=== PATIENT | female | born 1965 | race Caucasian/White ===

== ENCOUNTER 2016-10-18 10:50 | Emergency (ER) | payer OTHER ==
[~2016-10-18] VITALS: Ht 160 cm; Wt 102.2 kg
[~2016-10-18 10:50] MED LIST: ALBUTEROL0.083 % IN; AMOXICILLIN/CL875 MG OR; AMOXICILLIN/CL875 MG PO; AMOXICILLIN500 MG PO; ANAPROX275 MG PO; AUGMENTIN875 MG PO; AUGMENTIN875TAB OR; AUGMENTIN875TAB PO; AZITHROMYCIN250 MG PO; CARAFATE1 GM/10 M1 PO; CARAFATE1 GM/10 ML PO; CIPRODEX1 ML AD; CIPROFLOXACN500 MG PO; CLEOCIN300 MG OR; CORTISPORIN OTI10 ML AD; DEPO-MEDROL80 MG/ML IM; DIOVAN80 MG OR; DONNATA2 OR; DUONEB IN; FLEXERIL OR; FLEXERIL10 MG PO; HYDROCHLOROT12.5 MG OR; HYDROCHLOROT12.5 MG PO; HYDROCHLOROT25 MG PO; HYDROCORTISO2.51 EX; HYDROMET1 ML OR; HYDROXYZ HCL25 MG PO; IMITREX IJ; IMITREX50 M1 PO; IMITREX50 MG PO; KEFLEX500 MG PO; KETOROLAC60 MG/2 ML IJ; KETOROLAC60 MG/2 ML IM; LEVOTHYROXIN50 MCG PO; LISINOPRIL10 MG PO; LORTAB 5 OR; LOSARTAN POT25 MG PO; MAALOX/BEN PO; MEDDOSEPAK OR; MEDDOSEPAK PO; MUCUS RELIEF400 MG OR; MULTI VITAMN OR; NAPROSYN500 MG PO; NAPROXEN SOD500 MG PO; OMEPRAZOLE20 MG PO; OMEPRAZOLE40 MG PO; OMNICEF300 MG OR; PHENERGAN25 MG/ML IM; PHENERGAN25 MG/ML PO; PRAVASTATIN10 MG PO; PRILOSEC40 MG PO; PROAIR HFA IN; PYRIDIUM200 MG PO; RED YEAS1 OR; ROBITUSSIN AC10 ML PO; ROCEPHIN 1 GM1 GM IM; ROCEPHIN 2250 MG/VIA IM; SOLU-MEDROL125 MG IM; TORADOL IM; TRIAMCINOLON0.11 EX; VERAPAMIL HCL240 MG PO; VERAPAMIL120 M1 OR; VERAPAMIL240 M1 PO; XYZAL5 MG PO; ZANAFLEX4 MG PO; ZITHROMAX250 MG PO; ZOFRAN ODT4 MG PO; ZOFRAN4 MG/TAB PO; ZOLOFT100 MG PO; ZOLOFT25 MG OR; ZOLOFT50 MG OR; ZOLOFT50 MG PO; ZPAK PO; [UNRECOGNIZED DRUG - OTHER]; [UNRECOGNIZED DRUG - OTHER] IJ; [UNRECOGNIZED DRUG - OTHER] PO
[2016-10-18] MEDS ORDERED: AMLODIPINE2.5 MG PO (12:27)
[2016-10-18] MEDS ORDERED: ZOFRAN ODT4 MG PO (12:35)
[2016-10-18] MEDS ORDERED: FIORICET PO (12:35)
[2016-10-18 13:22] VITALS: BP 137/86
== END 2016-10-18 13:22 | disposition home or self-care (01) | DRG 103 ==
LOC: ED 10:50
DX: G43.909 Migraine, unspecified, not intractable, without status migrainosus (principal); R11.0 Nausea

== ENCOUNTER 2017-01-13 15:38 | Emergency (ER) | payer OTHER ==
[~2017-01-13] VITALS: Ht 160 cm; Wt 100.0 kg
[~2017-01-13 15:38] MED LIST changes: +AMLODIPINE2.5 MG PO; +FIORICET PO
[2017-01-13] MEDS ORDERED: LEVOTHYROXIN75 MCG PO (15:50)
[2017-01-13] MEDS ORDERED: LOSARTAN POTASS50 MG PO (15:51)
[2017-01-13] MEDS ORDERED: INDERAL 40MG TA40 MG PO (15:54)
[2017-01-13] MEDS ORDERED: PROPRANOLOL HC120 MG PO (15:56)
[2017-01-13 16:22] LABS: HEMATOCRIT 38.2 % (37.0-47.0); HEMOGLOBIN 13.8 g/dl (12.0-16.0); IMMATURE GRANULOCYTES 0.3 % (0.0-1.0); MEAN CELL VOLUME 89.3 fL CALC (80.0-100.0); MEAN CORPUSCULAR HGB 32.2 pG CALC (26.0-32.0); MEAN CORPUSCULAR HGB CONC 36.1 g/L CALC (32.0-36.0); NEUT# 4.1 thou/uL (2.00-7.15); RED BLOOD COUNT 4.28 mill/uL (4.20-5.60); RED CELL DISTRI WIDTH 12.8 % (11.5-15.5)
[2017-01-13 16:30] LABS: ALBUMIN 4.6 g/dL (3.2-5.0); ALKALINE PHOSPHATASE 49 u/l (38-126); ANION GAP 17 (6-22 (CALC)); BILIRUBIN, TOTAL 0.8 mg/dL (0.0-1.4); BUN 11 mg/dL (7-17); BUN/CREATININE RATIO 16 (12-20 (CALC)); CALCIUM 9.1 mg/dL (8.4-10.2); CARBON DIOXIDE 24 mmol/l (22-30); CHLORIDE 105 mmol/l (95-108); CREATININE 0.7 mg/dL (0.5-1.0); GFR > 60 ML/MIN (>=60 (CALC)); GFR FOR AFR.AMER. > 60 ML/MIN (>=60 (CALC)); GLUCOSE 95 mg/dL (65-105); POTASSIUM 3.8 mmol/l (3.5-5.1); SGOT/AST 28 u/l (14-36); SGPT/ALT 42 u/l (9-52); SODIUM 142 mmol/l (137-146); TOTAL PROTEIN 7.3 g/dL (6.3-8.2)
[2017-01-13 16:42] LABS: MYOGLOBIN 22 ng/mL (0 - 62)
[2017-01-13] MEDS ORDERED: AMLODIPINE2.5 MG PO (17:24)
[2017-01-13 17:52] VITALS: BP 111/59
== END 2017-01-13 18:05 | disposition home or self-care (01) | DRG 305 ==
LOC: ED 15:38
PROVIDERS: Emergency Medicine
DX: I10 Essential (primary) hypertension (principal); E03.9 Hypothyroidism, unspecified; G43.909 Migraine, unspecified, not intractable, without status migrainosus; J45.909 Unspecified asthma, uncomplicated; F41.9 Anxiety disorder, unspecified

== ENCOUNTER 2017-01-22 21:56 | Emergency (ER) | payer OTHER ==
[~2017-01-22] VITALS: Ht 160 cm; Wt 102.0 kg
[~2017-01-22 21:56] MED LIST changes: +INDERAL 40MG TA40 MG PO; +LEVOTHYROXIN75 MCG PO; +LOSARTAN POTASS50 MG PO; +PROPRANOLOL HC120 MG PO
[2017-01-22 23:56] VITALS: BP 130/65
== END 2017-01-23 00:02 | disposition home or self-care (01) | DRG 103 ==
LOC: ED 21:56
DX: G43.909 Migraine, unspecified, not intractable, without status migrainosus (principal); I10 Essential (primary) hypertension; J45.909 Unspecified asthma, uncomplicated; E03.9 Hypothyroidism, unspecified; F41.0 Panic disorder [episodic paroxysmal anxiety]

== ENCOUNTER 2017-02-14 20:49 | Emergency (ER) | payer OTHER ==
[~2017-02-14] VITALS: Ht 160 cm; Wt 103.8 kg
[2017-02-14] MEDS ORDERED: HYDROCHLOROT25 MG PO (21:00)
[2017-02-14 23:07] VITALS: BP 123/57
== END 2017-02-14 23:07 | disposition home or self-care (01) | DRG 103 ==
LOC: ED 20:49
DX: G43.909 Migraine, unspecified, not intractable, without status migrainosus (principal); R11.2 Nausea with vomiting, unspecified

== ENCOUNTER 2017-02-27 16:49 | Emergency (ER) | payer OTHER ==
[~2017-02-27] VITALS: Ht 160 cm; Wt 98.0 kg
[2017-02-27 19:45] VITALS: BP 132/67
== END 2017-02-27 19:45 | disposition home or self-care (01) | DRG 103 ==
LOC: ED 16:49
DX: G43.909 Migraine, unspecified, not intractable, without status migrainosus (principal); I10 Essential (primary) hypertension; R11.0 Nausea

== ENCOUNTER 2017-03-03 13:24 | Emergency (ER) | payer OTHER ==
[~2017-03-03] VITALS: Ht 160 cm; Wt 102.0 kg
[2017-03-03 14:00] LABS: HEMATOCRIT 40.2 % (37.0-47.0); HEMOGLOBIN 14.6 g/dl (12.0-16.0); IMMATURE GRANULOCYTES 0.5 % (0.0-1.0); MEAN CELL VOLUME 89.3 fL CALC (80.0-100.0); MEAN CORPUSCULAR HGB 32.4 pG CALC (26.0-32.0); MEAN CORPUSCULAR HGB CONC 36.3 g/L CALC (32.0-36.0); NEUT# 5.14 thou/uL (2.00-7.15); RED BLOOD COUNT 4.5 mill/uL (4.20-5.60); RED CELL DISTRI WIDTH 12.4 % (11.5-15.5)
[2017-03-03 14:22] LABS: ALBUMIN 4.5 g/dL (3.2-5.0); ALKALINE PHOSPHATASE 53 u/l (38-126); ANION GAP 17 (6-22 (CALC)); BILIRUBIN, TOTAL 0.8 mg/dL (0.0-1.4); BUN 14 mg/dL (7-17); BUN/CREATININE RATIO 21 (12-20 (CALC)); CALCIUM 9.4 mg/dL (8.4-10.2); CARBON DIOXIDE 28 mmol/l (22-30); CHLORIDE 99 mmol/l (95-108); CREATININE 0.7 mg/dL (0.5-1.0); ETHYL ALCOHOL 0 mg/dl (0-30); GFR > 60 ML/MIN (>=60 (CALC)); GFR FOR AFR.AMER. > 60 ML/MIN (>=60 (CALC)); GLUCOSE 116 mg/dL (65-105); POTASSIUM 3.2 mmol/l (3.5-5.1); SGOT/AST 41 u/l (14-36); SGPT/ALT 46 u/l (9-52); SODIUM 140 mmol/l (137-146); TOTAL PROTEIN 7.3 g/dL (6.3-8.2)
[2017-03-03 14:33] LABS: MYOGLOBIN 41 ng/mL (0 - 62)
[2017-03-03 15:20] LABS: URINE BILIRUBIN - DIPSTICK NEGATIVE (NEGATIVE); URINE BLOOD DIPSTICK NEGATIVE (NEGATIVE); URINE CLARITY SLIGHT CLOUDY; URINE COLOR YELLOW; URINE GLUCOSE - DIPSTICK NEGATIVE (NEGATIVE); URINE KETONE NEGATIVE (NEGATIVE); URINE LEUK ESTERASE TRACE (NEGATIVE); URINE NITRITE - DIPSTICK NEGATIVE (Negative); URINE PROTEIN - DIPSTICK NEGATIVE (NEG-TRACE); URINE SPECIFIC GRAVITY <=1.005; URINE UROBILINOGEN - DIPSTICK 0.2 E.U./dL (0.2)
[2017-03-03 15:23] LABS: BARBITURATES NEGATIVE (NEGATIVE); COCAINE NEGATIVE (NEGATIVE); METHADONE NEGATIVE (NEGATIVE); OXCYCODONE NEGATIVE (NEGATIVE); TETRAHYDROCANNABIONOL NEGATIVE (NEGATIVE); TRICYLIC ANTIDEPRESSANTS NEGATIVE (NEGATIVE)
[2017-03-03] MEDS ORDERED: BACTRIM DS1 TAB PO (16:03)
[2017-03-03 16:04] VITALS: BP 135/69
== END 2017-03-03 16:19 | disposition home or self-care (01) | DRG 312 ==
LOC: ED 13:24
PROVIDERS: Emergency Medicine
DX: R55 Syncope and collapse (principal); I10 Essential (primary) hypertension; N39.0 Urinary tract infection, site not specified; E87.6 Hypokalemia; J45.909 Unspecified asthma, uncomplicated; E03.9 Hypothyroidism, unspecified; F41.9 Anxiety disorder, unspecified

== ENCOUNTER 2017-03-11 16:51 | Emergency (ER) | payer OTHER ==
[~2017-03-11] VITALS: Ht 160 cm; Wt 85.0 kg
[~2017-03-11 16:51] MED LIST changes: +BACTRIM DS1 TAB PO
[2017-03-11] MEDS ORDERED: VALIUM5 MG PO (17:36)
[2017-03-11] MEDS ORDERED: ZOFRAN ODT4 MG PO (17:36)
[2017-03-11] MEDS ORDERED: PERCOCET 5/325M1 TAB PO (18:14)
[2017-03-11 18:29] VITALS: BP 145/76
== END 2017-03-11 18:39 | disposition home or self-care (01) | DRG 103 ==
LOC: ED 16:51
DX: G43.909 Migraine, unspecified, not intractable, without status migrainosus (principal); R11.2 Nausea with vomiting, unspecified

== ENCOUNTER 2017-07-02 18:20 | Emergency (ER) | payer OTHER ==
[~2017-07-02] VITALS: Ht 160 cm; Wt 108.0 kg
[~2017-07-02 18:20] MED LIST changes: +PERCOCET 5/325M1 TAB PO; +VALIUM5 MG PO
[2017-07-02 18:48] LABS: HEMATOCRIT 41.1 % (37.0-47.0); HEMOGLOBIN 14.8 g/dl (12.0-16.0); IMMATURE GRANULOCYTES 0.2 % (0.0-1.0); MEAN CELL VOLUME 90.3 fL CALC (80.0-100.0); MEAN CORPUSCULAR HGB 32.5 pG CALC (26.0-32.0); NEUT# 3.64 thou/uL (2.00-7.15); RED BLOOD COUNT 4.55 mill/uL (4.20-5.60); RED CELL DISTRI WIDTH 12.1 % (11.5-15.5)
[2017-07-02 19:05] LABS: ALBUMIN 4.6 g/dL (3.2-5.0); ALKALINE PHOSPHATASE 64 u/l (38-126); ANION GAP 15 (6-22 (CALC)); BILIRUBIN, TOTAL 0.5 mg/dL (0.0-1.4); BUN 7 mg/dL (7-17); BUN/CREATININE RATIO 9 (12-20 (CALC)); CALCIUM 9.1 mg/dL (8.4-10.2); CARBON DIOXIDE 33 mmol/l (22-30); CHLORIDE 100 mmol/l (95-108); CREATININE 0.7 mg/dL (0.5-1.0); GFR > 60 ML/MIN (>=60 (CALC)); GFR FOR AFR.AMER. > 60 ML/MIN (>=60 (CALC)); GLUCOSE 113 mg/dL (65-105); LIPASE 36 u/l (23-300); POTASSIUM 3.2 mmol/l (3.5-5.1); SGOT/AST 45 u/l (14-36); SGPT/ALT 63 u/l (9-52); SODIUM 144 mmol/l (137-146); TOTAL PROTEIN 7.3 g/dL (6.3-8.2)
[2017-07-02 19:17] LABS: MYOGLOBIN 29 ng/mL (0 - 62)
[2017-07-02] MEDS ORDERED: AMITRIPTYLIN25 MG PO (19:29)
[2017-07-02] MEDS ORDERED: MAGNESIUM400 M1 (19:29)
[2017-07-02 19:58] VITALS: BP 122/63
== END 2017-07-02 19:58 | disposition left against medical advice (07) | DRG 313 ==
LOC: ED 18:20 → ED-I 18:36 → ED 19:58
PROVIDERS: Emergency Medicine
DX: R07.9 Chest pain, unspecified (principal); E03.9 Hypothyroidism, unspecified; I10 Essential (primary) hypertension; J45.909 Unspecified asthma, uncomplicated; F41.0 Panic disorder [episodic paroxysmal anxiety]; Z91.19 Patient's noncompliance with other medical treatment and regimen

== ENCOUNTER 2017-07-08 20:14 | Observation (INO) | payer OTHER ==
[~2017-07-08] VITALS: Ht 160 cm; Wt 103.8 kg
[~2017-07-08 20:14] MED LIST changes: +AMITRIPTYLIN25 MG PO; +MAGNESIUM400 M1
[2017-07-08] MEDS ORDERED: PRAVASTATIN10 MG PO (20:29)
[2017-07-08] MEDS ORDERED: MICRO-K10 ME1 PO (20:30)
[2017-07-08] MEDS ORDERED: METOPROL TAR25 MG PO (20:30)
[2017-07-08] MEDS ORDERED: FUROSEMIDE20 MG PO (20:31)
[2017-07-08] MEDS ORDERED: WOMENS MULTIVIT1 TAB PO (20:32)
[2017-07-08] MEDS ORDERED: ALPRAZOLAM0.5 MG PO (20:32)
[2017-07-08 20:34] LABS: HEMATOCRIT 39.8 % (37.0-47.0); HEMOGLOBIN 14.2 g/dl (12.0-16.0); IMMATURE GRANULOCYTES 0.3 % (0.0-1.0); MEAN CELL VOLUME 91.7 fL CALC (80.0-100.0); MEAN CORPUSCULAR HGB 32.7 pG CALC (26.0-32.0); MEAN CORPUSCULAR HGB CONC 35.7 g/L CALC (32.0-36.0); NEUT# 4.14 thou/uL (2.00-7.15); RED BLOOD COUNT 4.34 mill/uL (4.20-5.60); RED CELL DISTRI WIDTH 12.1 % (11.5-15.5)
[2017-07-08 20:45] LABS: ALBUMIN 4.4 g/dL (3.2-5.0); ALKALINE PHOSPHATASE 64 u/l (38-126); ANION GAP 15 (6-22 (CALC)); BILIRUBIN, TOTAL 0.6 mg/dL (0.0-1.4); BUN 16 mg/dL (7-17); BUN/CREATININE RATIO 20 (12-20 (CALC)); CALCIUM 9.7 mg/dL (8.4-10.2); CARBON DIOXIDE 30 mmol/l (22-30); CHLORIDE 101 mmol/l (95-108); CREATININE 0.8 mg/dL (0.5-1.0); GFR > 60 ML/MIN (>=60 (CALC)); GFR FOR AFR.AMER. > 60 ML/MIN (>=60 (CALC)); GLUCOSE 100 mg/dL (65-105); POTASSIUM 3.8 mmol/l (3.5-5.1); SGOT/AST 81 u/l (14-36); SGPT/ALT 94 u/l (9-52); SODIUM 142 mmol/l (137-146); TOTAL PROTEIN 7.1 g/dL (6.3-8.2)
[2017-07-08 20:57] LABS: MYOGLOBIN 26 ng/mL (0 - 62)
[2017-07-08 21:50] VITALS: BP 121/72
[2017-07-08 23:10] LABS: CHOLESTEROL HDL RATIO 3.4 (<4.4 (CALC))
[2017-07-09 05:00] VITALS: BP 103/62
[2017-07-09 06:47] LABS: ALBUMIN 3.7 g/dL (3.2-5.0); ALKALINE PHOSPHATASE 59 u/l (38-126); ANION GAP 14 (6-22 (CALC)); BILIRUBIN, TOTAL 0.8 mg/dL (0.0-1.4); BUN 14 mg/dL (7-17); BUN/CREATININE RATIO 21 (12-20 (CALC)); CALCIUM 9.1 mg/dL (8.4-10.2); CARBON DIOXIDE 26 mmol/l (22-30); CHLORIDE 104 mmol/l (95-108); CREATININE 0.7 mg/dL (0.5-1.0); GFR > 60 ML/MIN (>=60 (CALC)); GFR FOR AFR.AMER. > 60 ML/MIN (>=60 (CALC)); GLUCOSE 88 mg/dL (65-105); SGOT/AST 73 u/l (14-36); SGPT/ALT 82 u/l (9-52); SODIUM 140 mmol/l (137-146); TOTAL PROTEIN 6.1 g/dL (6.3-8.2)
[2017-07-09 07:40] VITALS: BP 131/53
[2017-07-09] MEDS ORDERED: PROTONIX40 MG PO (12:49)
== END 2017-07-09 14:57 | disposition home or self-care (01) | DRG 392 ==
LOC: ED 20:14 → ED-I 21:00 → ED 21:19 → MS2 21:20
PROVIDERS: Emergency Medicine; ADMIT Internal Medicine Geriatric Medicine; ATTEND Internal Medicine Geriatric Medicine
DX: K21.9 Gastro-esophageal reflux disease without esophagitis (principal); K86.1 Other chronic pancreatitis; Z68.41 Body mass index [BMI] 40.0-44.9, adult; E03.9 Hypothyroidism, unspecified; I10 Essential (primary) hypertension; J45.909 Unspecified asthma, uncomplicated; F41.0 Panic disorder [episodic paroxysmal anxiety]; K27.9 Peptic ulcer, site unspecified, unspecified as acute or chronic, without hemorrhage or perforation; E66.9 Obesity, unspecified
CPT/HCPCS: G0378; S0164

== ENCOUNTER 2017-08-20 18:37 | Emergency (ER) | payer OTHER ==
[~2017-08-20] VITALS: Ht 160 cm; Wt 106.0 kg
[~2017-08-20 18:37] MED LIST changes: +ALPRAZOLAM0.5 MG PO; +FUROSEMIDE20 MG PO; +METOPROL TAR25 MG PO; +MICRO-K10 ME1 PO; +PROTONIX40 MG PO; +WOMENS MULTIVIT1 TAB PO
[2017-08-20 19:43] VITALS: BP 131/70
== END 2017-08-20 19:48 | disposition home or self-care (01) | DRG 103 ==
LOC: ED 18:37
DX: G43.909 Migraine, unspecified, not intractable, without status migrainosus (principal)

== ENCOUNTER 2017-09-22 13:18 | Emergency (ER) | payer OTHER ==
[~2017-09-22] VITALS: Ht 160 cm; Wt 100.0 kg
[2017-09-22] MEDS ORDERED: FIORICET PO (14:31)
[2017-09-22 14:41] VITALS: BP 144/74
== END 2017-09-22 16:04 | disposition home or self-care (01) | DRG 103 ==
LOC: ED 13:18
DX: G43.909 Migraine, unspecified, not intractable, without status migrainosus (principal); I10 Essential (primary) hypertension; R11.0 Nausea

== ENCOUNTER 2017-10-22 16:30 | Emergency (ER) | payer OTHER ==
[~2017-10-22] VITALS: Ht 160 cm; Wt 105.0 kg
[2017-10-22 18:03] VITALS: BP 187/85
== END 2017-10-22 18:00 | disposition home or self-care (01) | DRG 103 ==
LOC: ED 16:30
DX: G43.909 Migraine, unspecified, not intractable, without status migrainosus (principal); I10 Essential (primary) hypertension; R11.2 Nausea with vomiting, unspecified

== ENCOUNTER 2017-11-22 12:32 | Emergency (ER) | payer OTHER ==
[~2017-11-22] VITALS: Ht 160 cm; Wt 109.0 kg
[2017-11-22] MEDS ORDERED: AMITRIPTYLIN100 MG PO (13:55)
[2017-11-22] MEDS ORDERED: RANITIDINE75 M1 PO (14:08)
[2017-11-22] MEDS ORDERED: ASPIRIN 8181 MG PO (14:09)
[2017-11-22 15:08] VITALS: BP 130/80
== END 2017-11-22 15:11 | disposition home or self-care (01) | DRG 103 ==
LOC: ED 12:32
DX: G43.909 Migraine, unspecified, not intractable, without status migrainosus (principal); E05.90 Thyrotoxicosis, unspecified without thyrotoxic crisis or storm; I10 Essential (primary) hypertension; K21.9 Gastro-esophageal reflux disease without esophagitis

== ENCOUNTER 2018-02-06 17:05 | Emergency (ER) | payer OTHER ==
[~2018-02-06] VITALS: Ht 160 cm; Wt 120.0 kg
[~2018-02-06 17:05] MED LIST changes: +AMITRIPTYLIN100 MG PO; +ASPIRIN 8181 MG PO; +RANITIDINE75 M1 PO
[2018-02-06 18:47] VITALS: BP 153/71
== END 2018-02-06 18:49 | disposition home or self-care (01) | DRG 103 ==
LOC: ED 17:05
DX: G43.909 Migraine, unspecified, not intractable, without status migrainosus (principal); I10 Essential (primary) hypertension; E05.90 Thyrotoxicosis, unspecified without thyrotoxic crisis or storm; K21.9 Gastro-esophageal reflux disease without esophagitis

== ENCOUNTER 2018-03-08 07:14 | Emergency (ER) | payer OTHER ==
[~2018-03-08] VITALS: Ht 160 cm; Wt 100.0 kg
[~2018-03-08 07:14] MED LIST changes: -MAGNESIUM400 M1; +MAGNESIUM400 M1 PO
[2018-03-08] MEDS ORDERED: PRAVASTATIN10 MG PO (07:36)
[2018-03-08] MEDS ORDERED: ZOFRAN ODT4 MG PO (07:37)
[2018-03-08] MEDS ORDERED: AIMOVIG SC (07:38)
[2018-03-08] MEDS ORDERED: [UNRECOGNIZED DRUG - OTHER] (07:39)
[2018-03-08] MEDS ORDERED: ZOMIG (07:39)
[2018-03-08 10:02] VITALS: BP 148/92
== END 2018-03-08 10:13 | disposition home or self-care (01) | DRG 103 ==
LOC: ED 07:14
DX: G43.909 Migraine, unspecified, not intractable, without status migrainosus (principal); I10 Essential (primary) hypertension; E03.9 Hypothyroidism, unspecified; K21.9 Gastro-esophageal reflux disease without esophagitis

== ENCOUNTER 2018-04-09 07:02 | Emergency (ER) | payer OTHER ==
[~2018-04-09] VITALS: Ht 160 cm; Wt 113.0 kg
[~2018-04-09 07:02] MED LIST changes: +AIMOVIG SC; +ZOMIG; +[UNRECOGNIZED DRUG - OTHER]
[2018-04-09 08:37] VITALS: BP 168/70
== END 2018-04-09 08:57 | disposition home or self-care (01) | DRG 103 ==
LOC: ED 07:02
DX: G43.909 Migraine, unspecified, not intractable, without status migrainosus (principal); R51 Headache; I10 Essential (primary) hypertension; E03.9 Hypothyroidism, unspecified; K21.9 Gastro-esophageal reflux disease without esophagitis

== ENCOUNTER 2018-05-02 02:18 | Emergency (ER) | payer OTHER ==
[~2018-05-02] VITALS: Ht 160 cm; Wt 111.0 kg
[2018-05-02 03:46] VITALS: BP 128/76
== END 2018-05-02 03:47 | disposition home or self-care (01) | DRG 103 ==
LOC: ED 02:18
DX: G43.909 Migraine, unspecified, not intractable, without status migrainosus (principal); R11.0 Nausea; I10 Essential (primary) hypertension

== ENCOUNTER 2018-05-08 20:57 | Emergency (ER) | payer OTHER ==
[~2018-05-08] VITALS: Ht 160 cm; Wt 109.8 kg
[2018-05-08] MEDS ORDERED: PERCOCET 5/325M1 TAB PO (21:09)
[2018-05-08] MEDS ORDERED: XANAX1 MG PO (21:09)
[2018-05-08 23:12] VITALS: BP 112/53
== END 2018-05-08 23:12 | disposition home or self-care (01) | DRG 880 ==
LOC: ED 20:57
DX: F41.9 Anxiety disorder, unspecified (principal); I10 Essential (primary) hypertension; E03.9 Hypothyroidism, unspecified; K21.9 Gastro-esophageal reflux disease without esophagitis

== ENCOUNTER 2018-06-18 16:20 | Emergency (ER) | payer OTHER ==
[~2018-06-18] VITALS: Ht 160 cm; Wt 100.0 kg
[~2018-06-18 16:20] MED LIST changes: +XANAX1 MG PO
[2018-06-18] MEDS ORDERED: FIORICET PO (17:42)
[2018-06-18 17:50] VITALS: BP 174/91
[2018-06-18] MEDS ORDERED: ZOLOFT50 MG PO (18:11)
== END 2018-06-18 18:40 | disposition home or self-care (01) | DRG 103 ==
LOC: ED 16:20
DX: G43.909 Migraine, unspecified, not intractable, without status migrainosus (principal); I10 Essential (primary) hypertension; E03.9 Hypothyroidism, unspecified; K21.9 Gastro-esophageal reflux disease without esophagitis

== ENCOUNTER 2018-06-20 09:58 | Emergency (ER) | payer OTHER ==
[~2018-06-20] VITALS: Ht 160 cm; Wt 100.0 kg
[2018-06-20 11:08] LABS: HEMATOCRIT 42.6 % (37.0-47.0); HEMOGLOBIN 15.2 g/dl (12.0-16.0); IMMATURE GRANULOCYTES 0.3 % (0.0-5.0); MEAN CELL VOLUME 90.3 fL CALC (80.0-100.0); MEAN CORPUSCULAR HGB 32.2 pG CALC (26.0-32.0); MEAN CORPUSCULAR HGB CONC 35.7 g/L CALC (32.0-36.0); NEUT# 3.99 thou/uL (2.00-7.15); RED BLOOD COUNT 4.72 mill/uL (4.20-5.60)
[2018-06-20 11:08] LABS: URINE BILIRUBIN - DIPSTICK NEGATIVE (NEGATIVE); URINE BLOOD DIPSTICK NEGATIVE (NEGATIVE); URINE COLOR YELLOW; URINE GLUCOSE - DIPSTICK NEGATIVE (NEGATIVE); URINE KETONE NEGATIVE (NEGATIVE); URINE LEUK ESTERASE NEGATIVE (NEGATIVE); URINE NITRITE - DIPSTICK NEGATIVE (Negative); URINE PROTEIN - DIPSTICK NEGATIVE (NEG-TRACE); URINE SPECIFIC GRAVITY >=1.030; URINE UROBILINOGEN - DIPSTICK 0.2 E.U./dL (0.2)
[2018-06-20 11:09] LABS: URINE CLARITY HAZY
[2018-06-20 11:23] LABS: ALBUMIN 4.2 g/dL (3.2-5.0); ALKALINE PHOSPHATASE 67 u/l (38-126); ANION GAP 12 (6-22 (CALC)); BILIRUBIN, TOTAL 0.9 mg/dL (0.0-1.4); BUN 7 mg/dL (7-17); BUN/CREATININE RATIO 11 (12-20 (CALC)); CARBON DIOXIDE 25 mmol/l (22-30); CHLORIDE 109 mmol/l (95-108); CREATININE 0.7 mg/dL (0.5-1.0); GFR > 60 ML/MIN (>=60 (CALC)); GFR FOR AFR.AMER. > 60 ML/MIN (>=60 (CALC)); POTASSIUM 4.1 mmol/l (3.5-5.1); SGOT/AST 36 u/l (14-36); SODIUM 142 mmol/l (137-146); TOTAL PROTEIN 6.9 g/dL (6.3-8.2)
[2018-06-20 11:45] VITALS: BP 162/78
== END 2018-06-20 12:00 | disposition home or self-care (01) | DRG 93 ==
LOC: ED 09:58
PROVIDERS: Emergency Medicine
DX: R25.9 Unspecified abnormal involuntary movements (principal); I10 Essential (primary) hypertension; E03.9 Hypothyroidism, unspecified; R53.1 Weakness; R20.2 Paresthesia of skin; R11.0 Nausea; R94.31 Abnormal electrocardiogram [ECG] [EKG]

== ENCOUNTER 2018-07-04 16:33 | Emergency (ER) | payer OTHER ==
[~2018-07-04] VITALS: Ht 160 cm; Wt 105.0 kg
[2018-07-04 18:23] VITALS: BP 128/60
== END 2018-07-04 18:36 | disposition home or self-care (01) | DRG 103 ==
LOC: ED 16:33
DX: G43.909 Migraine, unspecified, not intractable, without status migrainosus (principal); R11.0 Nausea; I10 Essential (primary) hypertension; H53.149 Visual discomfort, unspecified

== ENCOUNTER 2018-07-21 16:28 | Emergency (ER) | payer OTHER ==
[~2018-07-21] VITALS: Ht 160 cm; Wt 84.0 kg
[2018-07-21 18:40] VITALS: BP 155/80
== END 2018-07-21 18:40 | disposition home or self-care (01) | DRG 103 ==
LOC: ED 16:28
DX: G43.909 Migraine, unspecified, not intractable, without status migrainosus (principal); I10 Essential (primary) hypertension; E03.9 Hypothyroidism, unspecified; K21.9 Gastro-esophageal reflux disease without esophagitis

== ENCOUNTER 2018-07-29 18:23 | Emergency (ER) | payer OTHER ==
[~2018-07-29] VITALS: Ht 160 cm; Wt 100.0 kg
[2018-07-29] MEDS ORDERED: METOPROL TAR25 MG PO (18:33)
[2018-07-29 20:35] VITALS: BP 149/71
== END 2018-07-29 20:35 | disposition home or self-care (01) | DRG 103 ==
LOC: ED 18:23
DX: G43.909 Migraine, unspecified, not intractable, without status migrainosus (principal); I10 Essential (primary) hypertension; E03.9 Hypothyroidism, unspecified; K21.9 Gastro-esophageal reflux disease without esophagitis

== ENCOUNTER 2018-08-05 13:34 | Emergency (ER) | payer OTHER ==
[~2018-08-05] VITALS: Ht 160 cm; Wt 80.0 kg
[2018-08-05 16:06] VITALS: BP 167/82
== END 2018-08-05 16:22 | disposition home or self-care (01) | DRG 103 ==
LOC: ED 13:34
DX: R51 Headache (principal); I10 Essential (primary) hypertension; E03.9 Hypothyroidism, unspecified; K21.9 Gastro-esophageal reflux disease without esophagitis
CPT/HCPCS: J0131

== ENCOUNTER 2018-09-02 14:28 | Emergency (ER) | payer OTHER ==
[~2018-09-02] VITALS: Ht 160 cm; Wt 100.0 kg
[2018-09-02 16:10] VITALS: BP 168/74
== END 2018-09-02 16:35 | disposition home or self-care (01) | DRG 103 ==
LOC: ED 14:28
DX: G43.909 Migraine, unspecified, not intractable, without status migrainosus (principal); R11.0 Nausea; I10 Essential (primary) hypertension

== ENCOUNTER 2018-09-22 17:16 | Emergency (ER) | payer OTHER ==
[~2018-09-22] VITALS: Ht 160 cm; Wt 90.9 kg
[2018-09-22] MEDS ORDERED: FIORICET PO (18:19)
[2018-09-22 19:24] VITALS: BP 158/76
== END 2018-09-22 19:32 | disposition home or self-care (01) | DRG 103 ==
LOC: ED 17:16
DX: G43.909 Migraine, unspecified, not intractable, without status migrainosus (principal); R11.2 Nausea with vomiting, unspecified; I10 Essential (primary) hypertension; H53.149 Visual discomfort, unspecified

== ENCOUNTER 2018-10-01 09:26 | Emergency (ER) | payer OTHER ==
[~2018-10-01] VITALS: Ht 160 cm; Wt 125.0 kg
[2018-10-01] MEDS ORDERED: FIORICET PO (10:28)
[2018-10-01 10:40] VITALS: BP 198/92
== END 2018-10-01 10:46 | disposition home or self-care (01) | DRG 103 ==
LOC: ED 09:26
DX: G43.909 Migraine, unspecified, not intractable, without status migrainosus (principal); I10 Essential (primary) hypertension; E03.9 Hypothyroidism, unspecified

== ENCOUNTER → 2018-10-09 | Outpatient (REF) ==
[~2018-10-09] MED LIST changes: +DICLOFENAC50 MG PO
[2018-10-09 09:40] LABS: CHOLESTEROL HDL RATIO 3.5 (<4.4 (CALC))
== END | disposition home or self-care (01) | DRG 951 ==
LOC: LAB 07:04
PROVIDERS: ATTEND Family Medicine
DX: Z02.6 Encounter for examination for insurance purposes (principal)

== ENCOUNTER 2018-10-11 17:33 | Emergency (ER) | payer OTHER ==
[~2018-10-11] VITALS: Ht 160 cm; Wt 100.0 kg
[~2018-10-11 17:33] MED LIST changes: -DICLOFENAC50 MG PO
[2018-10-11] MEDS ORDERED: FIORICET PO (19:14)
[2018-10-11 19:27] VITALS: BP 135/63
== END 2018-10-11 19:30 | disposition home or self-care (01) | DRG 103 ==
LOC: ED 17:33
DX: G43.909 Migraine, unspecified, not intractable, without status migrainosus (principal); R11.2 Nausea with vomiting, unspecified; H53.149 Visual discomfort, unspecified

== ENCOUNTER 2018-10-18 14:11 | Emergency (ER) | payer OTHER ==
[~2018-10-18] VITALS: Ht 160 cm; Wt 102.0 kg
[2018-10-18] MEDS ORDERED: DICLOFENAC50 MG PO (16:13)
[2018-10-18 16:14] VITALS: BP 149/78
== END 2018-10-18 16:22 | disposition home or self-care (01) | DRG 103 ==
LOC: ED 14:11
DX: G43.909 Migraine, unspecified, not intractable, without status migrainosus (principal); I10 Essential (primary) hypertension; R11.0 Nausea; H53.149 Visual discomfort, unspecified

== ENCOUNTER 2018-10-21 19:19 | Emergency (ER) | payer OTHER ==
[~2018-10-21] VITALS: Ht 160 cm; Wt 107.8 kg
[~2018-10-21 19:19] MED LIST changes: +DICLOFENAC50 MG PO
[2018-10-21 20:50] VITALS: BP 126/66
== END 2018-10-21 20:50 | disposition home or self-care (01) | DRG 103 ==
LOC: ED 19:19
DX: G43.909 Migraine, unspecified, not intractable, without status migrainosus (principal); I10 Essential (primary) hypertension; E03.9 Hypothyroidism, unspecified

== ENCOUNTER 2018-11-25 16:12 | Emergency (ER) | payer OTHER ==
[2018-11-25] MEDS ORDERED: NARATRIPTAN2.5 MG PO (17:01)
[2018-11-25] MEDS ORDERED: [UNRECOGNIZED DRUG - OTHER] PO (17:05)
== END 2018-11-25 16:15 | disposition left against medical advice (07) | DRG 951 ==
LOC: ED 16:12 → LWOBS 16:15
DX: Z91.19 Patient's noncompliance with other medical treatment and regimen (principal)

== ENCOUNTER 2018-11-25 16:24 | Emergency (ER) | payer OTHER ==
[~2018-11-25] VITALS: Ht 160 cm; Wt 99.1 kg
[2018-11-25 16:51] LABS: HEMATOCRIT 44.1 % (37.0-47.0); HEMOGLOBIN 15.3 g/dl (12.0-16.0); IMMATURE GRANULOCYTES 0.3 % (0.0-5.0); MEAN CELL VOLUME 90.9 fL CALC (80.0-100.0); MEAN CORPUSCULAR HGB 31.5 pG CALC (26.0-32.0); MEAN CORPUSCULAR HGB CONC 34.7 g/L CALC (32.0-36.0); NEUT# 3.78 thou/uL (2.00-7.15); RED BLOOD COUNT 4.85 mill/uL (4.20-5.60); RED CELL DISTRI WIDTH 12.2 % (11.5-15.5)
[2018-11-25] MEDS ORDERED: NARATRIPTAN2.5 MG PO (17:01)
[2018-11-25 17:03] LABS: ANION GAP 16 (6-22 (CALC)); BUN 9 mg/dL (7-17); BUN/CREATININE RATIO 14 (12-20 (CALC)); CARBON DIOXIDE 27 mmol/l (22-30); CHLORIDE 104 mmol/l (95-108); CREATININE 0.6 mg/dL (0.5-1.0); GFR > 60 ML/MIN (>=60 (CALC)); GFR FOR AFR.AMER. > 60 ML/MIN (>=60 (CALC)); POTASSIUM 4.2 mmol/l (3.5-5.1); SODIUM 143 mmol/l (137-146)
[2018-11-25] MEDS ORDERED: [UNRECOGNIZED DRUG - OTHER] PO (17:05)
[2018-11-25 19:25] VITALS: BP 155/72
== END 2018-11-25 19:25 | disposition home or self-care (01) | DRG 103 ==
LOC: ED 16:24
PROVIDERS: Family Medicine
DX: G43.909 Migraine, unspecified, not intractable, without status migrainosus (principal); I10 Essential (primary) hypertension; E03.9 Hypothyroidism, unspecified

== ENCOUNTER 2019-02-22 12:51 | Emergency (ER) | payer OTHER ==
[~2019-02-22] VITALS: Ht 160 cm; Wt 93.2 kg
[~2019-02-22 12:51] MED LIST changes: +NARATRIPTAN2.5 MG PO; +[UNRECOGNIZED DRUG - OTHER] PO
[2019-02-22 14:10] VITALS: BP 164/73
== END 2019-02-22 14:12 | disposition home or self-care (01) | DRG 103 ==
LOC: ED 12:51
DX: R51 Headache (principal); I10 Essential (primary) hypertension; E03.9 Hypothyroidism, unspecified

== ENCOUNTER → 2019-03-24 | Day surgery (SDC) | payer OTHER ==
[~2019-03-24] VITALS: Ht 160 cm; Wt 104.3 kg
[~2019-03-24] MED LIST changes: +ONDANSETRON HCL4 MG PO; +VITAMIN D32000 UNIT PO
[2019-03-24 09:59] VITALS: BP 170/86
== END | disposition home or self-care (01) | DRG 393 ==
LOC: ENDO 06:28 → ORM 08:00 → ENDO 08:00
PROVIDERS: ATTEND Surgery
PROC: 0DBN8ZX Excision of Sigmoid Colon, Via Natural or Artificial Opening Endoscopic, Diagnostic (ICD-10-PCS; principal; 2019-03-24)
PROC: 3E0H8KZ Introduction of Other Diagnostic Substance into Lower GI, Via Natural or Artificial Opening Endoscopic (ICD-10-PCS; 2019-03-24)
DX: D12.5 Benign neoplasm of sigmoid colon (principal); K57.31 Diverticulosis of large intestine without perforation or abscess with bleeding; K64.4 Residual hemorrhoidal skin tags; I10 Essential (primary) hypertension; E03.9 Hypothyroidism, unspecified

== ENCOUNTER 2019-08-20 | Emergency (ER) | payer OTHER | END 2019-08-20 20:50 | disposition home or self-care (01) | DRG 103 | DX: G43.909 Migraine, unspecified, not intractable, without status migrainosus (principal); I10 Essential (primary) hypertension; E03.9 Hypothyroidism, unspecified ==

== ENCOUNTER 2019-11-21 | Emergency (ER) | payer OTHER ==
[2019-11-21] MEDS ORDERED: SPIRONOLACTONE25 MG PO (17:50)
[2019-11-21] MEDS ORDERED: ZOFRAN8 MG PO (17:50)
[2019-11-21] MEDS ORDERED: ONDANSETRON4 MG PO ×2 (18:21)
== END 2019-11-21 18:47 | disposition home or self-care (01) | DRG 103 ==
DX: G43.909 Migraine, unspecified, not intractable, without status migrainosus (principal); I10 Essential (primary) hypertension; E03.9 Hypothyroidism, unspecified

== ENCOUNTER 2019-11-25 | Emergency (ER) | payer OTHER ==
[~2019-11-25] MED LIST changes: +ONDANSETRON4 MG PO; +SPIRONOLACTONE25 MG PO; +ZOFRAN8 MG PO
[2019-11-25] MEDS ORDERED: IBUPROFEN600 MG PO ×2 (19:48)
== END 2019-11-25 20:15 | disposition home or self-care (01) | DRG 563 ==
PROC: 2W3TX1Z Immobilization of Left Foot using Splint (ICD-10-PCS; principal; 2019-11-25)
DX: S92.352A Displaced fracture of fifth metatarsal bone, left foot, initial encounter for closed fracture (principal); I10 Essential (primary) hypertension; E03.9 Hypothyroidism, unspecified; X50.0XXA Overexertion from strenuous movement or load, initial encounter; Y93.89 Activity, other specified; Y92.009 Unspecified place in unspecified non-institutional (private) residence as the place of occurrence of the external cause

== ENCOUNTER 2020-05-09 16:30 | Emergency (ER) | payer OTHER ==
[~2020-05-09] VITALS: Ht 160 cm; Wt 100.0 kg
[~2020-05-09 16:30] MED LIST changes: +IBUPROFEN600 MG PO
[2020-05-09] MEDS ORDERED: FIORICET PO (17:40)
[2020-05-09 18:33] VITALS: BP 154/76
== END 2020-05-09 18:33 | disposition home or self-care (01) | DRG 103 ==
LOC: ED 16:30
DX: G43.909 Migraine, unspecified, not intractable, without status migrainosus (principal); I10 Essential (primary) hypertension; E03.9 Hypothyroidism, unspecified; K21.9 Gastro-esophageal reflux disease without esophagitis

== ENCOUNTER 2020-05-15 16:27 | Emergency (ER) | payer OTHER ==
[~2020-05-15] VITALS: Ht 160 cm; Wt 100.0 kg
[2020-05-15] MEDS ORDERED: FIORICET PO (18:04)
[2020-05-15 18:11] VITALS: BP 112/58
== END 2020-05-15 18:15 | disposition home or self-care (01) | DRG 103 ==
LOC: ED 16:27
DX: G43.909 Migraine, unspecified, not intractable, without status migrainosus (principal); I10 Essential (primary) hypertension; E03.9 Hypothyroidism, unspecified; K21.9 Gastro-esophageal reflux disease without esophagitis

== ENCOUNTER 2020-09-11 16:51 | Emergency (ER) | payer OTHER ==
[~2020-09-11] VITALS: Ht 160 cm; Wt 103.0 kg
[2020-09-11] MEDS ORDERED: FIORICET PO (18:17)
[2020-09-11 18:38] VITALS: BP 166/77
== END 2020-09-11 18:44 | disposition home or self-care (01) | DRG 103 ==
LOC: ED 16:51
DX: G43.909 Migraine, unspecified, not intractable, without status migrainosus (principal); I10 Essential (primary) hypertension; E03.9 Hypothyroidism, unspecified; K21.9 Gastro-esophageal reflux disease without esophagitis

== ENCOUNTER 2020-10-23 | Emergency (ER) | payer OTHER ==
[2020-10-23 08:15] LABS: HEMATOCRIT 42.3 % (37.0-47.0); HEMOGLOBIN 14.6 g/dl (12.0-16.0); IMMATURE GRANULOCYTES 0.3 % (0.0-5.0); MEAN CELL VOLUME 92.6 fL CALC (80.0-100.0); MEAN CORPUSCULAR HGB 31.9 pG CALC (26.0-32.0); MEAN CORPUSCULAR HGB CONC 34.5 g/dL CAL (32.0-36.0); NEUT# 3.74 thou/uL (2.00-7.15); RED BLOOD COUNT 4.57 mill/uL (4.20-5.60)
[2020-10-23 08:33] LABS: ALBUMIN 4.5 g/dL (3.2-5.0); ALKALINE PHOSPHATASE 58 u/l (38-126); ANION GAP 12 (6-22 (CALC)); BILIRUBIN, TOTAL 0.9 mg/dL (0.0-1.4); BUN 13 mg/dL (7-17); BUN/CREATININE RATIO 17 (12-20 (CALC)); CARBON DIOXIDE 25 mmol/l (22-30); CHLORIDE 105 mmol/l (95-108); CREATININE 0.8 mg/dL (0.5-1.0); GFR > 60 ML/MIN (>=60 (CALC)); GFR FOR AFR.AMER. > 60 ML/MIN (>=60 (CALC)); POTASSIUM 4.1 mmol/l (3.5-5.1); SGOT/AST 34 u/l (14-36); SODIUM 137 mmol/l (137-146)
== END 2020-10-23 09:10 | disposition home or self-care (01) | DRG 103 ==
PROVIDERS: Family Medicine
DX: G43.909 Migraine, unspecified, not intractable, without status migrainosus (principal); I10 Essential (primary) hypertension; E03.9 Hypothyroidism, unspecified; K21.9 Gastro-esophageal reflux disease without esophagitis

== ENCOUNTER 2020-11-05 16:31 | Emergency (ER) | payer OTHER ==
[2020-11-05 17:34] LABS: HEMOGLOBIN 13.8 g/dl (12.0-16.0); IMMATURE GRANULOCYTES 0.3 % (0.0-5.0); MEAN CELL VOLUME 91.3 fL CALC (80.0-100.0); MEAN CORPUSCULAR HGB 31.5 pG CALC (26.0-32.0); MEAN CORPUSCULAR HGB CONC 34.5 g/dL CAL (32.0-36.0); NEUT# 4.91 thou/uL (2.00-7.15); RED BLOOD COUNT 4.38 mill/uL (4.20-5.60); RED CELL DISTRI WIDTH 11.9 % (11.5-15.5)
[2020-11-05 17:48] LABS: ALBUMIN 4.5 g/dL (3.2-5.0); ALKALINE PHOSPHATASE 59 u/l (38-126); ANION GAP 12 (6-22 (CALC)); BILIRUBIN, TOTAL 0.9 mg/dL (0.0-1.4); BUN 13 mg/dL (7-17); BUN/CREATININE RATIO 17 (12-20 (CALC)); CARBON DIOXIDE 28 mmol/l (22-30); CHLORIDE 102 mmol/l (95-108); CREATININE 0.8 mg/dL (0.5-1.0); GFR > 60 ML/MIN (>=60 (CALC)); GFR FOR AFR.AMER. > 60 ML/MIN (>=60 (CALC)); MAGNESIUM 1.8 mg/dL (1.6-2.3); SGOT/AST 32 u/l (14-36); SODIUM 138 mmol/l (137-146); TOTAL PROTEIN 7.1 g/dL (6.3-8.2)
[2020-11-05] MEDS ORDERED: REGLAN10 MG PO (18:37)
[2020-11-05 18:51] VITALS: BP 130/80
== END 2020-11-05 18:51 | disposition home or self-care (01) | DRG 103 ==
LOC: ED 16:31
DX: G43.909 Migraine, unspecified, not intractable, without status migrainosus (principal); I10 Essential (primary) hypertension; E03.9 Hypothyroidism, unspecified; K21.9 Gastro-esophageal reflux disease without esophagitis

== ENCOUNTER 2021-03-01 11:57 | Emergency (ER) | payer OTHER ==
[~2021-03-01 11:57] MED LIST changes: +REGLAN10 MG PO
[2021-03-01 16:41] VITALS: BP 128/67
== END 2021-03-01 16:41 | disposition home or self-care (01) | DRG 103 ==
LOC: ED 11:57
DX: G43.909 Migraine, unspecified, not intractable, without status migrainosus (principal); I10 Essential (primary) hypertension; E03.9 Hypothyroidism, unspecified; K21.9 Gastro-esophageal reflux disease without esophagitis

== ENCOUNTER 2022-04-11 07:20 | Emergency (ER) | payer OTHER ==
[2022-04-11] VITALS (7 sets, daily range): BP systolic 120–137; BP diastolic 55–80
[~2022-04-11] VITALS: Ht 160 cm; Wt 104.5 kg
[2022-04-11] MEDS ORDERED: ALDACTONE50 MG PO (08:59)
[2022-04-11] MEDS ORDERED: VENLAFAXINE HCL75 M1 PO (09:00)
[2022-04-11] MEDS ORDERED: LUNESTA1 M1 PO (09:01)
[2022-04-11] MEDS ORDERED: UBRELVY100 MG PO (09:02)
[2022-04-11] MEDS ORDERED: ALBUTEROL108 MCG/AC (09:03)
== END 2022-04-11 10:21 | disposition home or self-care (01) | DRG 103 ==
LOC: ED 07:20
DX: G43.909 Migraine, unspecified, not intractable, without status migrainosus (principal); I10 Essential (primary) hypertension; E03.9 Hypothyroidism, unspecified; K21.9 Gastro-esophageal reflux disease without esophagitis; Z20.822 Contact with and (suspected) exposure to COVID-19

== ENCOUNTER 2024-03-07 07:27 | Day surgery (SDC) | payer OTHER ==
[~2024-03-07] VITALS: Ht 160 cm; Wt 99.8 kg
[~2024-03-07 07:27] MED LIST changes: +ALBUTEROL108 MCG/AC; +ALDACTONE50 MG PO; +LEVOTHYROXIN25 MC1 PO; +LUNESTA1 M1 PO; +TOPROL XL50 MG PO; +UBRELVY100 MG PO; +VENLAFAXINE HCL75 M1 PO
[2024-03-07] MEDS ORDERED: FAMOTIDINE 10MG/ML 2ML SDV IV ONE (07:35)
[2024-03-07] MEDS ORDERED: LACTATED RINGER'S 1,000 ML IV ONE (07:35)
[2024-03-07 09:37] VITALS: BP 132/90
[2024-03-07] MEDS ORDERED: PROPOFOL 200 MG/20 ML VIAL IV ONE (12:26)
[2024-03-07] MEDS ORDERED: LIDOCAINE HCL 2% 2ML SDV IV ONE (12:26)
== END 2024-03-07 09:50 | disposition home or self-care (01) | DRG 951 ==
LOC: ORM 07:27
PROVIDERS: ATTEND Internal Medicine Gastroenterology
PROC: 0DBN8ZX Excision of Sigmoid Colon, Via Natural or Artificial Opening Endoscopic, Diagnostic (ICD-10-PCS; principal; 2024-03-07)
PROC: 0DB58ZX Excision of Esophagus, Via Natural or Artificial Opening Endoscopic, Diagnostic (ICD-10-PCS; 2024-03-07)
PROC: 0DB78ZX Excision of Stomach, Pylorus, Via Natural or Artificial Opening Endoscopic, Diagnostic (ICD-10-PCS; 2024-03-07)
DX: Z12.11 Encounter for screening for malignant neoplasm of colon (principal); D12.5 Benign neoplasm of sigmoid colon; K57.30 Diverticulosis of large intestine without perforation or abscess without bleeding; K64.8 Other hemorrhoids; K29.70 Gastritis, unspecified, without bleeding; K22.9 Disease of esophagus, unspecified; K31.89 Other diseases of stomach and duodenum; R74.01 Elevation of levels of liver transaminase levels; K21.9 Gastro-esophageal reflux disease without esophagitis; K76.0 Fatty (change of) liver, not elsewhere classified; Z86.010 Personal history of colon polyps; Z80.8 Family history of malignant neoplasm of other organs or systems; Z80.51 Family history of malignant neoplasm of kidney